=== PATIENT | female | born 1995 | race Hispanic/Latino ===

== ENCOUNTER → 2020-07-28 | Outpatient (CLI) | payer OTHER ==
[2020-07-28 14:50] LABS: BASO % 0.5 % (0.0-1.0); EOS # 0.1 10^3/uL (0.0-0.5); HEMATOCRIT 38.4 % (36.0-47.0); LYMPH # 1.9 10^3/uL (1.5-5.0); LYMPH % 48.3 % (24.0-44.0); MEAN CORPUSCULAR HEMOGLOBIN 29.1 pg (27.0-33.0); MEAN CORPUSCULAR HGB CONC 31.3 g/dl (32.0-36.5); MONO # 0.4 10^3/uL (0.0-0.8); MONO % 8.8 % (0.0-5.0); NEUTROPHILS # 1.6 10^3/uL (1.5-8.5); NEUTROPHILS % 39.1 % (36.0-66.0); PLATELET COUNT, AUTOMATED 270 10^3/uL (150-450); RED BLOOD COUNT 4.13 10^6/uL (4.00-5.40)
== END ==
LOC: M LAB 13:48
PROVIDERS: ATTEND Physician Assistant
DX: D70.9 Neutropenia, unspecified (principal)

== ENCOUNTER → 2020-08-26 | Outpatient (CLI) | payer OTHER ==
[2020-08-26 16:51] LABS: CHLAMYDIA DNA AMPLIFICATION NEGATIVE (NEGATIVE); GC DNA AMPLIFICATION NEGATIVE (NEGATIVE)
== END ==
LOC: M LAB 13:26
PROVIDERS: ATTEND Physician Assistant
DX: Z02.89 Encounter for other administrative examinations (principal)

== ENCOUNTER → 2020-10-19 | Outpatient (REF) | payer OTHER, MEDICARE ==
[2020-10-19 17:27] LABS: HEMATOCRIT 33.6 % (36.0-47.0); HEMOGLOBIN 11.1 g/dl (12.0-15.5); MEAN CORPUSCULAR HEMOGLOBIN 30.2 pg (27.0-33.0); MEAN CORPUSCULAR VOLUME 91.3 fl (80.0-96.0); PLATELET COUNT, AUTOMATED 233 10^3/uL (150-450); RED BLOOD COUNT 3.68 10^6/uL (4.00-5.40); WHITE BLOOD COUNT 4.8 10^3/uL (4.0-10.0)
[2020-10-19 22:38] LABS: HIV 1&2 SCREEN CENTAUR NEGATIVE (NEGATIVE)
== END ==
LOC: M PLALAB 14:52
PROVIDERS: ATTEND Advanced Practice Midwife
DX: Z3A.09 9 weeks gestation of pregnancy (principal)

== ENCOUNTER → 2020-11-09 | Outpatient (REF) | payer OTHER, MEDICARE | LOC: M PLALAB 15:23 | PROVIDERS: ATTEND Advanced Practice Midwife | DX: Z36.89 Encounter for other specified antenatal screening (principal); Z3A.13 13 weeks gestation of pregnancy ==

== ENCOUNTER → 2020-12-08 | Outpatient (REF) | payer OTHER ==
[2020-12-08 13:46] LABS: AMORPHOUS SEDIMENT MODERATE (NEGATIVE); APPEARANCE, URINE CLOUDY (CLEAR); BACTERIA, URINE AUTO 1+ (NEGATIVE); BILIRUBIN, URINE AUTO NEGATIVE (NEGATIVE); BLOOD, URINE BLOOD NEGATIVE (NEGATIVE); COLOR, URINE YELLOW (YELLOW); GLUCOSE, URINE (UA) AUTO NEGATIVE (NEGATIVE); KETONE, URINE AUTO NEGATIVE (NEGATIVE); LEUKOCYTE ESTERASE, URINE AUTO TRACE (NEGATIVE); MUCUS, URINE SMALL (NEGATIVE); NITRITE, URINE AUTO NEGATIVE (NEGATIVE); PROTEIN, URINE AUTO NEGATIVE (NEGATIVE); RBC, URINE AUTO 1 /HPF (0-3); SPECIFIC GRAVITY URINE AUTO 1.016 (1.002-1.035); SQUAMOUS EPITHELIAL CELL UR AU 1 /HPF (0-6); UROBILINOGEN, URINE AUTO 0.2 mg/dL (0.0-2.0); WBC, URINE AUTO 0 /HPF (0-3)
== END ==
LOC: M SFHCWAGY 12:56
PROVIDERS: ATTEND Advanced Practice Midwife
DX: O26.899 Other specified pregnancy related conditions, unspecified trimester (principal); Z3A.00 Weeks of gestation of pregnancy not specified
CPT/HCPCS: 81001; 87086; G0463

== ENCOUNTER → 2020-12-16 | Outpatient (CLI) | payer OTHER ==
--- NOTE | 2020-12-16 10:05 | REP ---
INDICATION: ANATOMY COMPARISON: None. TECHNIQUE: Transabdominal obstetrical ultrasound with color Doppler evaluation. FINDINGS: Examination demonstrates a single live intrauterine in breech presentation. motion is identified by technologist. Placenta is noted anterior and grade 1 without evidence for placenta previa or abruption. Amniotic fluid volume is normal. Cervix measures 5.8 cm in length and appears closed.. Gestational age by LMP 19 weeks 0 days with SKYLER 05/12/2021. Gestational age by current measurements 18 weeks 5 days with SKYLER 05/14/2021. FHR equals 136 beats per minute. BPD: 4.1 cm at 18 weeks 3 days HC: 15.4 cm at 18 weeks 2 days AC: 13.1 cm at 18 weeks 4 days FL: 2.9 cm at 19 weeks 0 days HL: 2.9 cm at 19 weeks 2 days HC/AC: 1.18 Estimated weight 256 grams (32ndpercentile). Anatomical assessment demonstrates normal structures including cranium, choroid plexus, cavum, cerebellum/posterior fossa, facial features, lungs, diaphragm, stomach, cord insertion/three-vessel cord, kidneys/bladder, spine, and extremities. IMPRESSION: Single live intrauterine in breech presentation demonstrating appropriate estimated weight. Limited evaluation of the heart/ventricular outflow tracts. Remainder of the examination is normal. <Electronically signed by Eleazar Em > 12/16/20 1002
== END ==
LOC: M WHC 08:19
PROVIDERS: ATTEND Advanced Practice Midwife
DX: Z34.82 Encounter for supervision of other normal pregnancy, second trimester (principal)

== ENCOUNTER → 2021-01-07 | Outpatient (REF) | payer OTHER | LOC: M SFHCWAGY 12:45 | PROVIDERS: ATTEND Advanced Practice Midwife | DX: N76.0 Acute vaginitis (principal) | CPT/HCPCS: 87070; 87077; 87210; G0463 ==

== ENCOUNTER → 2021-02-04 | Outpatient (REF) | payer OTHER ==
[2021-02-04 13:46] LABS: HEMATOCRIT 36.3 % (36.0-47.0); HEMOGLOBIN 11.9 g/dl (12.0-15.5); MEAN CORPUSCULAR HEMOGLOBIN 31.1 pg (27.0-33.0); MEAN CORPUSCULAR HGB CONC 32.8 g/dl (32.0-36.5); MEAN CORPUSCULAR VOLUME 94.8 fl (80.0-96.0); PLATELET COUNT, AUTOMATED 200 10^3/uL (150-450); RED BLOOD COUNT 3.83 10^6/uL (4.00-5.40); WHITE BLOOD COUNT 5.4 10^3/uL (4.0-10.0)
== END ==
LOC: M PLALAB 08:33
PROVIDERS: ATTEND Advanced Practice Midwife
DX: Z34.81 Encounter for supervision of other normal pregnancy, first trimester (principal)

== ENCOUNTER → 2021-02-17 | Outpatient (CLI) | payer OTHER ==
[~2021-02-17] MED LIST: ACET-683 PO; DOCU100C16 PO; IBUP-1022 PO; PRENTAB9 PO
== END ==
LOC: M WHC 13:27
PROVIDERS: ATTEND Advanced Practice Midwife
DX: Z34.92 Encounter for supervision of normal pregnancy, unspecified, second trimester (principal); Z3A.22 22 weeks gestation of pregnancy

== ENCOUNTER → 2021-02-23 | Outpatient (CLI) | payer OTHER ==
--- NOTE | 2021-02-23 08:41 | REP ---
INDICATION: MATERN CARE FOR ABNLT FETL HRT RATE OR RHYM, UNSP COMPARISON: 02/17/2021 TECHNIQUE: Transabdominal obstetrical ultrasound with color Doppler evaluation. FINDINGS: Examination demonstrates a single live intrauterine in cephalic presentation. motion is identified by technologist. Placenta is noted anterior and grade 0 without evidence for placenta previa or abruption. Amniotic fluid volume is normal. Cervix measures 4.9 cm in length and appears closed.. Selected gestational age: 28 weeks 6 days with SKYLER 05/12/2021. Gestational age by current measurements 29 weeks 2 days with SKYLER 05/09/2021. FHR equals 126 beats per minute. JOHN: 13.8 cm Estimated weight 1304 grams (39thpercentile). Umbilical artery SD ratio: 2.40 (2.04-4.24) Evaluation demonstrates normal appearance to the four-chamber heart and essentially normal Doppler evaluation without arrhythmia seen on current examination. IMPRESSION: Single live intrauterine demonstrating appropriate interval growth. No cardiac abnormality or a dysrhythmia seen. <Electronically signed by Eleazar Em > 02/23/21 0889
== END ==
LOC: M RAD 07:32
PROVIDERS: ATTEND Advanced Practice Midwife
DX: O36.8390 Maternal care for abnormalities of the fetal heart rate or rhythm, unspecified trimester, not applicable or unspecified (principal)

== ENCOUNTER → 2021-04-15 | Outpatient (REF) | payer OTHER | LOC: M SFHCWAGY 12:56 | PROVIDERS: ATTEND Obstetrics & Gynecology | DX: Z34.93 Encounter for supervision of normal pregnancy, unspecified, third trimester (principal); Z3A.00 Weeks of gestation of pregnancy not specified | CPT/HCPCS: 87081; 87186; G0463 ==

== ENCOUNTER 2021-05-06 20:37 | Inpatient (IN) | payer OTHER ==
[~2021-05-06] VITALS: Ht 175.3 cm; Wt 92.7 kg
[2021-05-06] VITALS (9 sets, daily range): BP systolic 105–125; BP diastolic 52–72
[2021-05-06] MEDS ORDERED: PRENTAB9 PO (21:08)
[2021-05-06] MEDS ORDERED: HOME MED LIST COMPLETE! XX SCH ×2 (21:10)
[2021-05-06] MEDS ORDERED: PENICILLIN G POTASSIUM IV 5 MU in D5W MINI-BAG PLUS 100 ML IV STA (21:22)
[2021-05-06] MEDS ORDERED: LACTATED RINGER'S 1000 ML IV STA (21:22)
[2021-05-06] MEDS ORDERED: TRANEXAMIC ACID INJection 1,000 MG in NS 100 ML IV PRN (21:25)
[2021-05-06] MEDS ORDERED: OXYTOCIN DRIP 30 UNITS in IV 1 EA IV PRN ×4 (21:25)
[2021-05-06] MEDS ORDERED: LIDOCAINE 1% MDV 20ML VIAL INFIL PRN (21:25)
[2021-05-06] MEDS ORDERED: CARBOPROST TROMETHAMINE 250 MCG/ML AMP IM PRN (21:25)
[2021-05-06] MEDS ORDERED: METHYLERGONOVINE MALEATE 0.2 MG/ML VIAL (J2210) IM PRN (21:25)
[2021-05-06] MEDS ORDERED: OXYTOCIN INJ 10 UNITS/ML VIAL (J2590) IM PRN (21:25)
[2021-05-06 21:42] LABS: HEMATOCRIT 41.5 % (36.0-47.0); HEMOGLOBIN 13.9 g/dl (12.0-15.5); MEAN CORPUSCULAR HEMOGLOBIN 31.4 pg (27.0-33.0); MEAN CORPUSCULAR HGB CONC 33.5 g/dl (32.0-36.5); MEAN CORPUSCULAR VOLUME 93.7 fl (80.0-96.0); PLATELET COUNT, AUTOMATED 205 10^3/uL (150-450); RED BLOOD COUNT 4.43 10^6/uL (4.00-5.40); WHITE BLOOD COUNT 7.1 10^3/uL (4.0-10.0)
[2021-05-06] MEDS ORDERED: FENTANYL 2MCG/ML ROPIVACAINE 0.2% IN 0.9% NACL 100ML IVBAG As Ordered ONE (22:32)
[2021-05-06] MEDS ORDERED: REFRIGERATOR IV KEYS XX PRN (23:10)
[2021-05-06] MEDS ORDERED: FENTANYL/ROPIVACAINE/NACL BAG 100 ML EPIDURAL SCH (23:10)
[2021-05-06] MEDS ORDERED: EPIDURAL COMMENT XX SCH (23:10)
[2021-05-06] MEDS ORDERED: ONDANSETRON 4MG/2ML VIAL IV PRN (23:10)
[2021-05-06] MEDS ORDERED: ePHEDrine SULFATE 25 MG/5 ML(5MG/ML) SYRINGE IV PRN (23:10)
[2021-05-06] MEDS ORDERED: LACTATED RINGER'S 1000 ML IV PRN (23:10)
[2021-05-06] MEDS ORDERED: diphenhydrAMINE 50MG/ML VIAL (J1200) IV PRN (23:10)
[2021-05-06] MEDS ORDERED: NALOXONE INJ 0.4MG/1ML VIAL (J2310 PER 1MG) IV PRN (23:10)
[2021-05-06] MEDS ORDERED: EPIDURAL/PCA KEYS XX PRN (23:10)
[2021-05-06] MEDS ORDERED: OXYTOCIN 30 UNITS IN 0.9% NaCl 500ML IV BAG (J2590) As Ordered ONE (23:27)
[2021-05-07] VITALS (7 sets, daily range): BP systolic 106–188; BP diastolic 51–141
[2021-05-07] MEDS ORDERED: DOCUSATE SODIUM 100MG CAPSULE PO PRN (00:30)
[2021-05-07] MEDS ORDERED: IBUPROFEN 600MG TAB PO PRN (00:30)
[2021-05-07] MEDS ORDERED: RHOGAM 300 MCG (1500 IU) INJ (J2790) IM SCH (00:30)
[2021-05-07] MEDS ORDERED: DIBUCAINE 1% OINTMENT 30GM TOP PRN (00:30)
[2021-05-07] MEDS ORDERED: ACETAMINOPHEN TAB 650MG DOSE (2X325MG) PO PRN (00:30)
[2021-05-07] MEDS ORDERED: MEASLES,MUMPS,RUBELLA VACCINE INJ (MMR-II) (90707) SC SCH (00:30)
[2021-05-07] MEDS ORDERED: PENICILLIN G POTASSIUM IV 2.5 MU in IV 1 EA IV SCH (01:38)
[2021-05-07] MEDS: PRENATAL VITAMINS CHEWABLE TABLET PO SCH (07:21)
[2021-05-07] MEDS: IBUPROFEN 800 MG TAB PO PRN ×2 (07:21→15:16)
--- NOTE | 2021-05-07 08:43 | HPE ---
HISTORY AND PHYSICAL DATE OF ADMISSION: 05/06/2021 SUBJECTIVE: Kamila is a 25-year-old, 3, para 1-0-1-1, at 39 weeks and 1 day with an EDC of 05/12/2021 based on last menstrual period and confirmed by first trimester ultrasound. She presents to Labor and Delivery today, reports onset of uncomfortable contractions at approximately 1830. They have progressively become closer together and much more debilitating. She denies any vaginal bleeding and leakage of the fluid. The fetus has been active. Her care [facility] in the first trimester. course uncomplicated. OBSTETRIC HISTORY: December 06, 2015, 38 weeks gestation, 7 lb male, vaginal delivery, no complications. #2: Spontaneous miscarriage. OBSTETRIC LABS: B positive, antibody screen negative, syphilis negative. Gonorrhea and Chlamydia negative. Hepatitis B surface antigen negative. Hepatitis C antibody nonreactive. HIV negative. Rubella immune. Gestational diabetic screening normal at 65 and GBS is positive. PAST MEDICAL HISTORY: Noncontributory. PAST SURGICAL HISTORY: None. FAMILY HISTORY: Diabetes, heart disease. SOCIAL HISTORY: The patient is . Her is at bedside. She is a nonsmoker, denies alcohol and drug use, denies history of sexually transmitted infections and denies of abuse, physical, sexual and emotional. ALLERGIES: No known drug allergies. CURRENT MEDICATIONS: vitamin. OBJECTIVE: Temp 97.1, pulse 91. BP is 123/65. She is alert and oriented x3. She does appear very uncomfortable with her contractions. heart rate is 130 with moderate variability, positive accelerations, negative decelerations. Contractions are every two minutes. They palpate moderate. Her abdomen is gravid, cephalic presentation with estimated weight 7-1/2 lb. Sterile vaginal exam: 7 cm dilated, 80% effaced, -2 station, broken bag of water, positive bloody show. ASSESSMENT: Intrauterine at 39 weeks and 1 day. heart rate category 1, active labor at term. PLAN: Admit the patient to labor and delivery, routine laboratories, out of bed ad geraldine, clear liquid diet. IV fluid bolus as the patient is requesting an epidural for her labor coping. I will consider assisted rupture of membranes if necessary to augment her labor. Risks, benefits and alternatives have been reviewed with the patient. She and her 's questions have been answered. She has been verbally consented for emergency surgery and blood products if they are necessary. I do anticipate continued labor progress and a vaginal delivery.
--- NOTE | 2021-05-07 09:03 | DN ---
DELIVERY NOTE DATE OF DELIVERY: 05/06/2021 TIME OF : 2358 GENDER: Male. APGARS: 9 and 9. LACERATIONS: None. ANESTHESIA: Epidural. ESTIMATED BLOOD LOSS: COUNTS: Correct and verified. DESCRIPTION OF DELIVERY: Kamila is a 25-year-old 3, para 2-0-1-2 now who was admitted to labor and delivery in active labor. She coped with her labor with an epidural. She had assisted rupture of membranes for moderate clear fluid at 2337. She was also fully dilated at 2337. She pushed to a normal spontaneous vaginal delivery of a live male infant in occiput anterior (OA) position restitution to left occiput transverse (LOT) position at 23:58. There was a nuchal cord x1 tight that was reduced with somersault maneuver at the time of delivery. Mouth and nares were bulb suctioned and the was placed on the maternal abdomen crying and active. The cord was clamped x2 once pulsations ceased and cut by the father of the baby under my direction. Spontaneous expulsion of an intact placenta with three-vessel cord by Tapia mechanism was at 0002. Uterine hemostasis achieved with IV Pitocin rapid infusion and uterine fundal massage. Estimated blood loss 250 mL. Perineum and vagina inspected noted to be intact. male weighed 7 pounds 8 ounces, 3400 grams. Apgars were 9 and 9. Family have named their son Bonilla and mom is going to attempt to breastfeed. At the close of delivery lap counts and instrument counts were correct and verified. Of note, the patient was straight cathed for approximately 150 mL of dark yellow urine.
[2021-05-07] MEDS: ACETAMINOPHEN 500 MG TAB PO PRN ×2 (10:05→23:34)
[2021-05-08 06:00] VITALS: BP 131/56
[2021-05-08] MEDS: IBUPROFEN 800 MG TAB PO PRN ×2 (08:52→17:01)
[2021-05-08] MEDS: PRENATAL VITAMINS CHEWABLE TABLET PO SCH (08:52)
--- NOTE | 2021-05-08 08:52 | IPNPDOC ---
Progress Note Date of Service: May 08, 2021 Day#: 1 Progress Note SUBJECT: Patient is a 25-year-old G 3 P 2012 status post uncomplicated spontan eous vaginal delivery at 39-1/7 weeks' doing well day #1. She has been ambulating, voiding spontaneously without issue and tolerating regular diet. Breast feeding without issue. Reports lochia is like a normal period. Patient is ambulating well. Reports some cramping, well controlled with medication. Voiding and ambulating without difficulty. Patient is anxious to be discharged home today. OBJECTIVE: VITAL SIGNS: Within normal limits, afebrile. Alert and oriented times three. Breath sounds clear to auscultation. Heart rate: Regular rate and rhythm, no murmurs, rubs or gallops. Abdomen: Fundus firm at U-2. Soft, NTTP. Minimal to moderate lochia. ASSESSMENT: Patient is a 25-year-old G 3 P 2011 status post uncomplicated spontaneous vaginal delivery after presenting to labor and delivery with labor. Doing well on day 1. Vitals within normal limits, afebrile, he modynamically stable with no evidence of infection. PLAN: 1. Discharge to home today as long as is discharged. 2. Tylenol and Motrin for pain. 3. Encourage breast feeding and ambulation. 4. Patient declines contraception at this time 5. Routine PP visit in 6 weeks in clinic. 6. Discussed return precautions at length. VS, I&O, 24H, Fishbone Vital Signs/I&O Vital Signs Date Time Temp Pulse Resp B/P (MAP) Pulse Ox O2 Delivery O2 Flow Rate FiO2 05/08/21 06:00 98.0 60 16 131/56 (81) 99 Room Air I&O- Last 24 Hours up to 6 AM 05/08/21 06:00 Intake Total 700 ml Output Total 350 ml Balance 350 ml STEPHANIE RODRIGUEZ MD May 08, 2021 08:52
[2021-05-08] MEDS ORDERED: DOCU100C16 PO (08:53)
[2021-05-08] MEDS ORDERED: IBUP-1022 PO (08:53)
[2021-05-08] MEDS ORDERED: ACET-683 PO (08:53)
[2021-05-08] MEDS ORDERED: INFLUENZA QUADRIVALENT PF VACCINE 0.5ML SYRINGE IM ONE (09:00)
[2021-05-08] MEDS: ACETAMINOPHEN 500 MG TAB PO PRN (12:54)
--- NOTE | 2021-05-09 16:31 | IPN ---
PROGRESS NOTE DATE: 05/08/2021 This patient and requested circumcision of their male infant. After discussing the risks and benefits of circumcision, the medical to nonmedical indications, the penile block and aftercare, expressed understanding of penile block, aftercare, and bleeding, signed the consent form, all questions were answered, 20 minute discussion. We await clearance by the electric motorman.
== END 2021-05-08 17:30 | disposition home or self-care (01) | DRG 807 ==
LOC: M LDO 20:37 → M LDI 21:20 → M OBS 05-07 15:15
PROVIDERS: ADMIT Advanced Practice Midwife; ATTEND Advanced Practice Midwife
PROC: 10E0XZZ Delivery of Products of Conception, External Approach (ICD-10-PCS; principal; 2021-05-06)
DX: O69.1XX0 Labor and delivery complicated by cord around neck, with compression, not applicable or unspecified (principal); Z37.0 Single live birth; Z3A.39 39 weeks gestation of pregnancy

== ENCOUNTER → 2023-03-29 | Outpatient (REF) | payer OTHER | LOC: M PLALAB 14:25 | PROVIDERS: ATTEND Advanced Practice Midwife | DX: Z34.81 Encounter for supervision of other normal pregnancy, first trimester (principal); Z53.9 Procedure and treatment not carried out, unspecified reason ==

== ENCOUNTER → 2023-03-29 | Outpatient (CLI) | payer OTHER ==
[2023-03-29 16:33] LABS: HEMATOCRIT 34.7 % (36.0-47.0); HEMOGLOBIN 11.7 g/dl (12.0-15.5); MEAN CORPUSCULAR HEMOGLOBIN 30.5 pg (27.0-33.0); MEAN CORPUSCULAR HGB CONC 33.7 g/dl (32.0-36.5); MEAN CORPUSCULAR VOLUME 90.6 fl (80.0-96.0); PLATELET COUNT, AUTOMATED 232 10^3/uL (150-450); RED BLOOD COUNT 3.83 10^6/uL (4.00-5.40); WHITE BLOOD COUNT 4.5 10^3/uL (4.0-10.0)
[2023-03-29 17:28] LABS: HIV 1&2 SCREEN NEGATIVE (NEGATIVE)
[2023-03-29 17:37] LABS: HEPATITIS C VIRUS ABY INDEX 0.12 INDEX (<0.8)
[2023-03-29 18:51] LABS: GC DNA AMPLIFICATION NEGATIVE (NEGATIVE)
== END ==
LOC: M PLALAB 14:50
PROVIDERS: ATTEND Advanced Practice Midwife
DX: Z34.81 Encounter for supervision of other normal pregnancy, first trimester (principal)

== ENCOUNTER 2023-10-10 16:53 | Inpatient (IN) | payer OTHER ==
[~2023-10-10] VITALS: Ht 170.2 cm; Wt 93.9 kg
[2023-10-10] VITALS (9 sets, daily range): BP systolic 117–138; BP diastolic 59–83; O2SAT 100
[2023-10-10] MEDS ORDERED: LIDOCAINE 1% MDV 20ML VIAL INFIL PRN (17:10)
[2023-10-10] MEDS ORDERED: TRANEXAMIC ACID INJection 1,000 MG in NS 100 ML IV PRN (17:10)
[2023-10-10] MEDS ORDERED: METHYLERGONOVINE MALEATE 0.2MG/ML 1ML VIAL IM PRN (17:10)
[2023-10-10] MEDS ORDERED: OXYTOCIN INJ 10UNITS/ML 1ML VIAL IV PRN (17:10)
[2023-10-10] MEDS ORDERED: OXYTOCIN INJ 10UNITS/ML 1ML VIAL IM PRN (17:10)
[2023-10-10] MEDS ORDERED: OXYTOCIN DRIP 30 UNITS in IV 1 EA IV PRN (17:10)
[2023-10-10] MEDS ORDERED: LR 1,000 ML IV SCH (17:10)
[2023-10-10] MEDS ORDERED: OXYTOCIN DRIP 30 UNITS in IV 1 EA IV SCH (17:10)
[2023-10-10] MEDS ORDERED: CARBOPROST TROMETHAMINE 250 MCG/ML AMP IM PRN (17:10)
[2023-10-10] MEDS: PENICILLIN G POTASSIUM 5 MU IV 5 MU in D5W MINI-BAG PLUS 100 ML IV STA (17:31)
[2023-10-10] MEDS: LACTATED RINGER'S 1000 ML IV STA (17:31)
[2023-10-10 17:43] LABS: HEMOGLOBIN 12.1 g/dl (12.0-15.5); MEAN CORPUSCULAR HEMOGLOBIN 30.5 pg (27.0-33.0); MEAN CORPUSCULAR HGB CONC 33.6 g/dl (32.0-36.5); MEAN CORPUSCULAR VOLUME 90.7 fl (80.0-96.0); PLATELET COUNT, AUTOMATED 229 10^3/uL (150-450); RED BLOOD COUNT 3.97 10^6/uL (4.00-5.40); WHITE BLOOD COUNT 6.8 10^3/uL (4.0-10.0)
[2023-10-10] MEDS: LR 1,000 ML IV SCH (18:10)
[2023-10-10] MEDS ORDERED: diphenhydrAMINE 50MG/ML VIAL IV PRN (18:15)
[2023-10-10] MEDS ORDERED: ONDANSETRON 4MG 2ML VIAL IV PRN (18:15)
[2023-10-10] MEDS ORDERED: ePHEDrine SULFATE 25 MG/5 ML(5MG/ML) SYRINGE IVP PRN (18:15)
[2023-10-10] MEDS ORDERED: NALOXONE INJ 0.4MG/1ML VIAL IV PRN (18:15)
[2023-10-10] MEDS ORDERED: FENTANYL/ROPIVACAINE/NACL BAG 100 ML EPIDURAL SCH (18:15)
[2023-10-10] MEDS ORDERED: LR 500 ML IV PRN (18:15)
[2023-10-10] MEDS ORDERED: EPIDURAL/PCA KEYS XX PRN (18:15)
[2023-10-10] MEDS: OXYTOCIN DRIP 30 UNITS in IV 1 EA IV PRN ×2 (18:33→19:06)
[2023-10-10] MEDS ORDERED: MOM 30ML SUSPENSION UDC PO PRN (18:40)
[2023-10-10] MEDS ORDERED: DOCUSATE SODIUM 100MG CAPSULE PO PRN (18:40)
[2023-10-10] MEDS ORDERED: DIBUCAINE 1% OINTMENT 30GM TOP PRN (18:40)
[2023-10-10] MEDS ORDERED: ANUSOL HC CREAM 30GM TOP PRN (18:40)
[2023-10-10] MEDS: ACETAMINOPHEN 500 MG TAB PO PRN (19:05)
[2023-10-10] MEDS: IBUPROFEN 800 MG TAB PO PRN (19:06)
[2023-10-10] MEDS ORDERED: PEN G POT 3,000,000 UNIT/50 ML 3,000,000 UNIT in IV 1 EA IV SCH (21:10)
[2023-10-11 05:31] VITALS: BP 113/54; O2SAT 100
[2023-10-11] MEDS: PRENATAL VITAMINS CHEWABLE TABLET PO SCH (09:59)
[2023-10-12 06:00] VITALS: BP 125/69; O2SAT 99
[2023-10-12] MEDS: MEASLES,MUMPS,RUBELLA VACCINE INJ (MMR-II) SC.IMMUN ONE (06:51)
== END 2023-10-12 17:55 | disposition home or self-care (01) | DRG 807 ==
LOC: M LDO 16:53 → M LDI 17:13 → M OBS 20:08
PROVIDERS: ADMIT Obstetrics & Gynecology; ATTEND Obstetrics & Gynecology
PROC: 10E0XZZ Delivery of Products of Conception, External Approach (ICD-10-PCS; principal; 2023-10-10)
DX: O69.82X0 Labor and delivery complicated by other cord entanglement, without compression, not applicable or unspecified (principal); Z37.0 Single live birth; Z3A.38 38 weeks gestation of pregnancy; O99.824 Streptococcus B carrier state complicating childbirth

== ENCOUNTER 2023-12-26 06:12 | Day surgery (SDC) | payer OTHER ==
[~2023-12-26] VITALS: Ht 172.7 cm; Wt 88.9 kg
[~2023-12-26 06:12] MED LIST changes: +ACET-897 PO; +AMOX875T2 PO; +PREN200C PO; +PRENTAB77 PO; +STOO100C30 PO
[2023-12-26 06:43] LABS: HEMATOCRIT 37.7 % (36.0-47.0); HEMOGLOBIN 12.5 g/dl (12.0-15.5); MEAN CORPUSCULAR HEMOGLOBIN 29.9 pg (27.0-33.0); MEAN CORPUSCULAR HGB CONC 33.2 g/dl (32.0-36.5); MEAN CORPUSCULAR VOLUME 90.2 fl (80.0-96.0); PLATELET COUNT, AUTOMATED 224 10^3/uL (150-450); RED BLOOD COUNT 4.18 10^6/uL (4.00-5.40)
[2023-12-26] MEDS: LR 1,000 ML IV SCH (07:00)
[2023-12-26] MEDS ORDERED: SUGAMMADEX SODIUM 500 MG/5 ML VIAL (BRIDION) As Ordered ONE (07:01)
[2023-12-26] MEDS ORDERED: dexmedeTOMIDine (4MCG/ML)200MCG/50ML BTL (PRECEDEX) As Ordered ONE (07:01)
[2023-12-26] MEDS ORDERED: ACETAMINOPHEN 1000MG 100ML IV BAG As Ordered ONE (07:01)
[2023-12-26] MEDS ORDERED: ONDANSETRON 4MG 2ML VIAL As Ordered ONE (07:01)
[2023-12-26] MEDS ORDERED: propofoL 200 MG/20 ML VIAL As Ordered ONE (07:01)
[2023-12-26] MEDS ORDERED: ROCURONIUM BROMIDE 50MG/5ML VIAL As Ordered ONE (07:01)
[2023-12-26] MEDS ORDERED: LIDOCAINE 2% 100MG/5ML SDV (FOR ANES.) As Ordered ONE (07:01)
[2023-12-26] MEDS ORDERED: KETOROLAC 60MG 2ML VIAL As Ordered ONE (07:01)
[2023-12-26] MEDS ORDERED: fentaNYL 100 MCG/2 ML INJECTION As Ordered ONE (07:02)
[2023-12-26] MEDS ORDERED: MIDAZOLAM INJ 2MG/2ML VIAL As Ordered ONE (07:02)
[2023-12-26] MEDS ORDERED: SCOPOLAMINE 1MG TRANSDERMAL PATCH As Ordered ONE (07:18)
[2023-12-26] MEDS ORDERED: ONDANSETRON 4MG 2ML VIAL IV PRN (08:55)
[2023-12-26] MEDS ORDERED: oxyCODONE 5MG TAB PO PRN (08:55)
[2023-12-26] MEDS: fentaNYL 100 MCG/2 ML INJECTION IV PRN (09:22)
[2023-12-26] MEDS: MORPHINE 2 MG/ML 1ML VIAL IV PRN (09:51)
[2023-12-26 10:10] VITALS: BP 155/84; TEMP 98; O2SAT 100
== END 2023-12-26 11:22 | disposition home or self-care (01) ==
LOC: M SDC 06:12
PROVIDERS: ATTEND Obstetrics & Gynecology
DX: Z30.2 Encounter for sterilization (principal); Z12.4 Encounter for screening for malignant neoplasm of cervix
CPT/HCPCS: 36415; 58661; 81025; 85027; 86850; 87624; 88302; G0123; J0131; J0665; J1100; J1885; J2250; J2405; J3010

== ENCOUNTER → 2024-03-31 | Outpatient (REF) | LOC: M EMP 08:14 | PROVIDERS: ATTEND Family Medicine | DX: Z11.52 Encounter for screening for COVID-19 (principal) ==

== ENCOUNTER 2025-04-01 15:43 | Emergency (ER) | payer OTHER ==
[~2025-04-01] VITALS: Ht 170.2 cm; Wt 98.9 kg
[2025-04-01 16:12] LABS: KETONE, URINE AUTO RFX NEGATIVE (NEGATIVE); LEUKOCYTE ESTERASE UR AUTO RFX NEGATIVE (NEGATIVE); MUCUS, URINE RFX SMALL (NEGATIVE); NITRITE, URINE AUTO RFX NEGATIVE (NEGATIVE); RBC, URINE AUTO RFX 1 /HPF (0-3); SQUAM EPITHELIAL CELL UR AURFX 4 /HPF (0-6); WBC, URINE AUTO RFX 1 /HPF (0-3)
[2025-04-01 18:00] VITALS: BP 105/58; TEMP 97.6; O2SAT 100
[2025-04-01] MEDS ORDERED: CETI10CH PO (18:31)
[2025-04-01] MEDS ORDERED: AZIT-12 PO (18:31)
[2025-04-01] MEDS ORDERED: PRED20TA PO (18:33)
== END 2025-04-01 18:46 | disposition home or self-care (01) ==
LOC: M ED 15:43
DX: J20.9 Acute bronchitis, unspecified (principal); H65.03 Acute serous otitis media, bilateral; R00.2 Palpitations; Z79.1 Long term (current) use of non-steroidal anti-inflammatories (NSAID); Z79.2 Long term (current) use of antibiotics; Z79.899 Other long term (current) drug therapy; Z79.52 Long term (current) use of systemic steroids